=== PATIENT | male | born 1945 | race Caucasian/White ===

== ENCOUNTER 2024-09-11 13:53 | Emergency (ER) | payer OTHER, SELFPAY ==
[2024-09-11 13:57] VITALS: BP 167/95
[2024-09-11 14:33] LABS: Urine Character Bloody (Clear)
[2024-09-11 14:40] LABS: Urine Red Blood Cell >100 /HPF (0-2)
[2024-09-11 16:54] LABS: Hematocrit 44.0 % (39.0-52.0); Hemoglobin 15.3 g/dL (13.0-18.0); Mean Corp Hgb Conc. 34.8 g/dL (33.0-37.0); Mean Corpuscular Volume 90.5 fL (80.0-94.0); Nucleated Red Blood Cells % 0 % (-); Platelet Count 166 10^3/uL (130-400); Red Cell Dist. Width 13.2 % (11.5-14.5)
[2024-09-11 17:17] LABS: ALT (SGPT) 18 U/L (0-50); AST (SGOT) 23 U/L (17-59); Albumin 4.4 g/dl (3.5-5.0); Alkaline Phosphatase 95 U/L (38-126); Blood Urea Nitrogen 9 mg/dl (9-20); Calcium 9.6 mg/dl (8.4-10.2); Carbon Dioxide 25 mmol/L (22-30); Chloride 110 mmol/L (98-107); Glucose 135 mg/dl (70-99); Potassium 4.1 mmol/L (3.5-5.1); Sodium 141 mmol/L (135-145); Total Protein 7.1 g/dl (6.3-8.2); eGFR > 60.00
[2024-09-11 17:28] VITALS: BP 142/87
--- NOTE | 2024-09-11 18:21 | ED.GENMED ---
History of Present Illness
General
Chief Complaint: Urinary Symptoms
Source: patient and spouse
Time Seen by Provider: 09/11/24 14:43
History of Present Illness
History of Present Illness:
Note:
CHIEF COMPLAINT(S)
- Hematuria (blood in urine).
HISTORY OF PRESENT ILLNESS
The patient is an 79-year-old male who presents with hematuria. The patient reports that he began urinating blood approximately 10 minutes after lifting a heavy battery and drinking a small amount of bourbon. He describes the urine as red and states
that it is painless. The patient has no prior history of prostate issues and denies any current issues with urination such as frequency or urgency, aside from hydrating in the evenings and subsequently urinating more during that time. He reports no
recent urologist consultations and has not experienced hematuria since an incident over 10 years ago related to severe dehydration. The patient associates his previous case of hematuria with dehydration, which was also painless and self-limited. He
denies any ongoing prescribed medications but occasionally takes alternative supplements.
PHYSICAL EXAM
General: Alert, cooperative.
Skin: Warm, dry.
Head: Normocephalic, atraumatic.
Neck: Supple, trachea midline.
Eye Ears, Nose, Mouth, and Throat: Oral mucosa moist.
Cardiovascular: Normal peripheral perfusion, no edema.
Respiratory: Respirations are non-labored.
Gastrointestinal: Abdomen nondistended, no tenderness reported during palpation.
Back: Normal range of motion, normal alignment.
Musculoskeletal: Normal range of motion, normal strength.
Neurological: Alert and oriented to person, place, time, and situation, no focal neurological deficit observed.
Psychiatric: Cooperative, appropriate mood & affect.
PROBLEM LIST
Acute:
- Hematuria (painless).
PLAN
- Recommend catheter insertion to drain the bladder and address any potential clot issues.
- Perform laboratory blood work for further evaluation.
- Plan to flush the bladder to clear any clots if present and attempt to stop the bleeding.
DIFFERENTIAL DIAGNOSIS
The Differential Diagnosis includes, in no particular order and is not limited to:
1. Benign prostatic hyperplasia.
2. Urinary tract infection.
3. Bladder cancer.
4. Kidney stones.
5. Bladder stones.
6. Trauma to the urinary tract.
7. Urolithiasis.
8. Prostatitis.
9. Hemorrhagic cystitis.
10. High-intensity physical activity-associated hematuria.
CARE-UPDATE
09/11/24 - 18:21
Patient reported urination with no visible blood.
Disposition:
SUMMARY OF ENCOUNTER
An 79-year-old male presented with hematuria following heavy lifting and alcohol consumption. During his emergency department stay, a blood scan was conducted, revealing no retention. His urine has cleared of blood without the need for a urinary
catheter. Given the resolution of hematuria, the decision was made to discharge the patient for outpatient follow-up with urology. The patient remained stable with no signs of infection. Hemoglobin and urinalysis results were reviewed, showing
normal levels with no presence of white blood cells. The patients medical history shows no prostate issues.
ASSESSMENT
The patient experienced acute, painless hematuria likely induced by physical activity and alcohol consumption, which has since resolved spontaneously.
PLAN
Discharge the patient with instructions for outpatient follow-up with urology to ensure monitoring and management of any potential underlying conditions associated with the hematuria.
INDEPENDENT REVIEW OF LABS AND INTERPRETATION OF TESTS
- My independent review of blood work indicates normal hemoglobin levels.
- My independent review of urinalysis indicates no white blood cells present.
- My independent review of CBC indicates normal white blood cell counts.
- My independent review of renal function indicates normal creatinine levels.
FOLLOW-UP INSTRUCTIONS
The patient is advised to follow up with a urologist to monitor and manage any potential underlying conditions related to hematuria.
MEDICATION RECONCILIATION
No new medications were prescribed or administered during this visit.
MEDICAL DECISION MAKING
- Number and Complexity of Problems Addressed: Acute painless hematuria with consideration for potential underlying causes such as benign prostatic hyperplasia, urinary tract infection, and bladder issues.
- Data:
- Category 1: Blood tests including hemoglobin, white blood cell count, creatinine, and urinalysis were reviewed and showed no abnormalities.
- Risk: Consideration of Admission/Observation: Escalation of care was considered but found unnecessary as the patients condition stabilized with urine clear of blood.
DIAGNOSIS
- Hematuria (R31.9)
Past History
Past History
ED Past Medical History: Other (shingles neuralgia)
Social History
Personal:
Living: with family
Employment: Retired
Phy Exam
Physical Exam
Physical Exam:
.
Course
Orders/Labs/Results
Orders:
Orders
09/11/24 14:23
UA Reflex to Culture [Urinalysis Reflex To Culture] Urgent
Date Specimen was Collected: 09/11/24
Time Specimen was Collected: 14:18
Urine Microscopic Reflex Cult Urgent
09/11/24 16:17
Delgado Placement- Treatment ONCE
Reason for insertion: Urology Determination
09/11/24 16:43
Complete Blood Count/With Diff Urgent
Comprehensive Metabolic Panel Urgent
Abnormal Lab Results
09/11/24 09/11/24
14:23 16:43
MCH 31.5 H pg
(27.0-31.0)
Absolute Neuts (auto) 7.3 H 10^3/uL
(1.4-6.5)
Absolute Lymphs (auto) 0.7 L 10^3/uL
(1.2-3.4)
Neutrophils % 83.8 H %
(42.2-75.2)
Lymphocytes % 8.2 L %
(20.5-51.1)
Chloride 110 H mmol/L
(98-107)
Glucose 135 H mg/dl
(70-99)
Urine Ketones 1+ A
(Negative)
Ur Occult Blood Reflex 4+ A
(Negative)
Urine RBC >100 A /HPF
(0-2)
Urine Albumin (Reflex) 4+ A
(Neg - Trace)
09/11/24 16:43
09/11/24 16:43
Vital Signs
Initial and Last Documented VS:
Initial Vital Signs
Temp Pulse Resp BP Pulse Ox
98.7 F 88 18 167/95 98
09/11/24 13:57 09/11/24 13:57 09/11/24 13:57 09/11/24 13:57 09/11/24 13:57
Last Documented Vital Signs
Temp Pulse Resp BP Pulse Ox
98.7 F 95 20 142/87 97
09/11/24 13:57 09/11/24 17:28 09/11/24 17:28 09/11/24 17:28 09/11/24 18:23
*Pulse Oximetry
SaO2: 97
Oxygen Mode of Delivery: Room air
Patient hypoxic: no
*Critical Care Note
Total Time (30-74mins, 75-104mins- exclusive of procedures): Not Applicable
ED Attending Note
-
Portions of this chart may have been created with voice recognition software.� Occasional wrong word or��sound alike� substitutions may have occurred due to the inherent limitations of voice recognition software.
Discharge Plan
Departure
Patient Disposition: Home (Routine Discharge)
Date of Disposition: 09/11/24
Time of Disposition: 18:22
Patient with high blood pressure during this ER visit?: Yes
Discharge Problem:
Hematuria
Instructions: Blood in the Urine (Hematuria), Adult (DC), BLOOD PRESSURE
Prescriptions:
No Action
levofloxacin 500 MG tablet
500 mg PO DAILY Qty: 7 0RF
Referrals:
Virgil Montoya MD [Active, Urology]
Guille Burns MD [Family Provider, Internal Medicine]
Activity Restrictions/Additional Instructions:
Please see urology in the next 1 week for follow-up and reevaluation. Return immediately for difficulty urinating, fevers, abdominal pain, return of blood in the urine or any other concerns.
Interventions
Interventions:
*Risk Screen - Suicide Last Done: 09/11/24 13:57
*General Assessment Last Done: 09/11/24 13:57
*Neglect/Abuse Screening Last Done: 09/11/24 13:57
*ED- Fall Risk Assessment Last Done: 09/11/24 14:28
*ED COVID-19 Vaccine History Last Done: 09/11/24 14:28
*Nursing Disposition Last Done: 09/11/24 18:28
ED-Male Genitourinary Assessment Last Done: 09/11/24 14:28
Discharge Date and Time
Discharge Date/Time: 09/11/24 18:28
Print Language: KYRGYZ
== END 2024-09-11 18:28 | disposition home or self-care (01) ==
LOC: EMR 13:53
PROVIDERS: EMERGENCY PHYSICIAN Emergency Medicine; FAMILY PHYSICIAN Internal Medicine
DX: R31.9 Hematuria, unspecified (principal); X50.0XXA Overexertion from strenuous movement or load, initial encounter
CPT/HCPCS: 99283; 80053; 81003; 81015; 85025

== ENCOUNTER 2024-09-12 16:16 | Emergency (ER) | payer OTHER, SELFPAY ==
[2024-09-12 16:18] VITALS: BP 146/100
--- NOTE | 2024-09-12 19:42 | ED.GENMED ---
History of Present Illness
General
Chief Complaint: Male Genito-Urinary Symptoms
Time Seen by Provider: 09/12/24 17:07
Nursing documentation reviewed up to this point in time: agreed with
History of Present Illness
History of Present Illness:
79-year-old male presents to the ER for further evaluation of hematuria. Patient was seen in the ER yesterday for hematuria which resolved. He states that he had 2 episodes of bloody urine prompting him to come back to the ER today. He states
that he has been drinking plenty of fluids. No flank pain. No fevers. No dysuria or urinary frequency. He reports that the hematuria resolved prior to his arrival today. He denies any recent urologic instrumentation. He has not been on
antibiotics recently. He denies any feeling of inability to empty his bladder. No abdominal pain. He is not on any blood thinners.
Past History
Past History
ED Past Medical History: Other (shingles neuralgia)
Social History
Personal:
Living: with family
Employment: Retired
Review of Systems
Review of Systems
Allergies reviewed?: Yes
Phy Exam
Physical Exam
Physical Exam:
Patient is awake, alert, appears no acute distress, head is normocephalic atraumatic, PERRL, conjunctiva pink, mucous membranes moist, abdomen is soft and nontender on palpation, no guarding or rebound, no CVA tenderness, extremities without edema,
2+ DP pulses present symmetric, GCS is 15 moving all extremities symmetrically without focal deficit
Course
Orders/Labs/Results
Orders:
Orders
09/12/24 17:07
Bladder Scan- Treatment ONCE
I reviewed labs and urinalysis from yesterday-urine had large blood, no infection
Vital Signs
Initial and Last Documented VS:
Initial Vital Signs
Temp Pulse Resp BP Pulse Ox
97.7 F 98 16 146/100 98
09/12/24 16:18 09/12/24 16:18 09/12/24 16:18 09/12/24 16:18 09/12/24 16:18
Last Documented Vital Signs
Temp Pulse Resp BP Pulse Ox
97.7 F 98 16 146/100 98
09/12/24 16:18 09/12/24 16:18 09/12/24 16:18 09/12/24 16:18 09/12/24 16:18
MDM/Problems Addressed
Differential Diagnosis Includes:
Differential diagnosis to consider but not limited to bladder neoplasm, polyp, UTI, renal colic along with other etiologies considered
*Pulse Oximetry
SaO2: 98
Oxygen Mode of Delivery: Room air
Patient hypoxic: no
*Critical Care Note
Total Time (30-74mins, 75-104mins- exclusive of procedures): Not Applicable
Update Note
Update Note:
Patient appears in no acute distress with complete resolution of hematuria here today. Urinalysis is not repeated as patient is not having any irritative symptoms, nor consistent hematuria. He has no significant urinary retention. I discussed
with patient and significant other present at bedside strict return precautions, including but not limited to fever, inability to eat or drink, inability to void. Patient agrees with plan to follow-up with urologist. He had no questions prior to
leaving the department in good condition
ED Attending Note
-
Portions of this chart may have been created with voice recognition software.� Occasional wrong word or��sound alike� substitutions may have occurred due to the inherent limitations of voice recognition software.
Discharge Plan
Departure
Patient Disposition: Home (Routine Discharge)
Date of Disposition: 09/12/24
Time of Disposition: 17:53
Patient with high blood pressure during this ER visit?: Yes
Discharge Problem:
Hematuria
Instructions: Blood in the Urine (Hematuria), Adult (DC), BLOOD PRESSURE
Prescriptions:
No Action
levofloxacin 500 MG tablet
500 mg PO DAILY Qty: 7 0RF
Referrals:
Virgil Montoya MD [Active, Urology] - Next open appointment
Guille Burns MD [Family Provider, Internal Medicine]
Activity Restrictions/Additional Instructions:
Please contact urology office in the morning to schedule ointment for reevaluation and further care. Please return to the ER for any concerns including but not limited to inability to urinate, difficulty with eating or drinking, fever or flank pain
Interventions
Interventions:
*Nursing Disposition Last Done: 09/12/24 18:25
ED-Male Genitourinary Assessment Last Done: 09/12/24 18:24
Discharge Date and Time
Discharge Date/Time: 09/12/24 18:27
Print Language: [email or web address]
== END 2024-09-12 18:27 | disposition home or self-care (01) ==
LOC: EMR 16:16
PROVIDERS: EMERGENCY PHYSICIAN Emergency Medicine; FAMILY PHYSICIAN Internal Medicine
DX: R31.9 Hematuria, unspecified (principal)
CPT/HCPCS: 99282

== ENCOUNTER 2024-10-19 06:21 | Day surgery (SDC) | payer OTHER, SELFPAY ==
[2024-10-08 14:23] VITALS: BMI 22.7
[2024-10-19] VITALS (14 sets, daily range): BP systolic 107–150; BP diastolic 60–86; BMI 22.7
[2024-10-19] MEDS: NORMOSOL-R/PLASMALYTE-A 1000 IV (11:02)
[2024-10-19] MEDS: CYSVIEW KIT 100 MG INTRAVES (11:15)
[2024-10-19] MEDS: TRANEXAMIC ACID 100 IV (17:07)
== END 2024-10-19 19:27 | disposition home or self-care (01) ==
LOC: SDS 06:21
PROVIDERS: ATTENDING PHYSICIAN Specialist; FAMILY PHYSICIAN Internal Medicine
DX: N30.81 Other cystitis with hematuria (principal); N32.9 Bladder disorder, unspecified; R31.0 Gross hematuria
CPT/HCPCS: 52224; 88307; 88341; 88342; 93005; A9589